=== PATIENT | male | born 1990 | race Caucasian/White ===

== ENCOUNTER 2020-03-11 12:55 | Emergency (ER) | payer MEDICAID ==
[~2020-03-11] VITALS: Ht 180.3 cm; Wt 107.3 kg
[2020-03-11 14:42] VITALS: BP 152/115
[2020-03-11] MEDS ORDERED: LIDOcaine 5% patch TP STA (15:17)
[2020-03-11] MEDS ORDERED: cyclobenzaprine 10mg tablet PO ONE (15:20)
[2020-03-11] MEDS ORDERED: ketorolac tromethamine 15mg/ml inj. IM ONE (15:20)
[2020-03-11] MEDS ORDERED: LIDO700A32 TOP (15:41)
[2020-03-11] MEDS ORDERED: CYCL-1 PO (15:41)
== END 2020-03-11 16:02 | disposition home or self-care (01) ==
LOC: ER 12:56
DX: S39.012A Strain of muscle, fascia and tendon of lower back, initial encounter (principal); G89.29 Other chronic pain; Z91.013 Allergy to seafood; Z91.048 Other nonmedicinal substance allergy status; Z79.899 Other long term (current) drug therapy; W18.39XA Other fall on same level, initial encounter; Y93.89 Activity, other specified; Y92.89 Other specified places as the place of occurrence of the external cause; Y99.8 Other external cause status
CPT/HCPCS: 96372; 99283; J1885

== ENCOUNTER 2022-11-02 00:08 | Emergency (ER) | payer MEDICAID ==
[~2022-11-02] VITALS: Ht 180.3 cm; Wt 98.0 kg
[~2022-11-02 00:08] MED LIST: CYCL-1 PO; LIDO700A32 TOP
[2022-11-02 00:10] VITALS: BP 153/99
[2022-11-02] MEDS ORDERED: AMOX-117 PO (00:39)
[2022-11-02] MEDS ORDERED: HYDR-3965 PO (00:39)
[2022-11-02] MEDS ORDERED: HYDROcodone/acetaminophen 10/325mg tab PO ONE (00:40)
== END 2022-11-02 01:39 | disposition home or self-care (01) ==
LOC: ER 00:09
DX: K08.89 Other specified disorders of teeth and supporting structures (principal); G89.29 Other chronic pain; F17.200 Nicotine dependence, unspecified, uncomplicated; Z86.19 Personal history of other infectious and parasitic diseases; Z79.899 Other long term (current) drug therapy; Z88.6 Allergy status to analgesic agent; Z91.013 Allergy to seafood
CPT/HCPCS: 99283

== ENCOUNTER 2022-11-06 16:14 | Emergency (ER) | payer MEDICAID ==
[~2022-11-06] VITALS: Ht 177.8 cm; Wt 111.4 kg
[~2022-11-06 16:14] MED LIST changes: +AMOX-117 PO; +HYDR-3965 PO
[2022-11-06 17:07] LABS: BASOPHILS # (AUTO) 0.1 X10'3 (0-0.2); EOSINOPHILS # (AUTO) 0.2 X10'3 (0-0.9); MEAN PLATELET VOLUME 9.8 FL (7.4-10.4)
[2022-11-06 17:08] LABS: BASOPHILS % (AUTO) 1.1 % (0-1); EOSINOPHILS % (AUTO) 2.6 % (0-6); HEMATOCRIT 49.3 % (42.0-52.0); HEMOGLOBIN 16.5 g/dl (14.0-17.9); LYMPHOCYTES # (AUTO) 2.7 X10'3 (1.1-4.8); LYMPHOCYTES % (AUTO) 36.8 % (21-51); MEAN CORPUSCULAR HGB CONC 33.5 g/dL (33.0-36.5); MEAN CORPUSCULAR VOLUME 89.6 FL (78-98); MONOCYTES # (AUTO) 0.6 X10'3 (0-0.9); MONOCYTES % (AUTO) 8.6 % (2-12); NEUTROPHILS # (AUTO) 3.8 X10'3 (1.8-7.7); NEUTROPHILS % (AUTO) 50.9 % (42-75); RED CELL DISTRIBUTION WIDTH 13.8 % (11.5-14.5); WHITE BLOOD COUNT 7.4 X10'3 (4.5-11.0)
[2022-11-06 17:16] LABS: PLATELET COUNT 158 X10'3 (140-440)
[2022-11-06 17:17] LABS: ALANINE AMINOTRANSFERASE 353 U/L (12-78); ALBUMIN 4.1 G/DL (3.4-5.0); ALBUMIN/GLOBULIN RATIO 1.2 (1.1-1.5); ALKALINE PHOSPHATASE 113 IU/L (46-116); ANION GAP 4 (8-16); ASPARTATE AMINO TRANSFERASE 165 U/L (10-37); BILIRUBIN,TOTAL 0.5 MG/DL (0.1-1.0); BLOOD UREA NITROGEN 6 MG/DL (7-18); BUN/CREATININE RATIO 6.1 (10.0-20.0); CALCIUM 9.5 MG/DL (8.5-10.1); CHLORIDE 105 MMOL/L (99-107); CREATININE 0.99 MG/DL (0.60-1.10); GLUCOSE 96 MG/DL (70-104); LIPASE 51 U/L (73-393); POTASSIUM 4.3 MMOL/L (3.5-5.1); SODIUM 140 MMOL/L (135-145); TOTAL PROTEIN 7.6 G/DL (6.4-8.2); eGFR 87 ML/MIN
[2022-11-06 17:19] LABS: CLARITY,URINE CLEAR (Clear); COLOR,URINE YELLOW (Yellow); GLUCOSE, URINE NEGATIVE (Neg); KETONES,URINE NEGATIVE (Neg); LEUKOCYTE ESTERASE ,URINE NEGATIVE (Neg); NITRITES, URINE NEGATIVE (Neg); OCCULT BLOOD,URINE NEGATIVE (Neg); PH,URINE 5.5 (4.8-8.0); PROTEIN,URINE NEGATIVE (Neg); UROBILINOGEN,URINE 0.2 E.U/dL (0.2-1.0)
[2022-11-06] MEDS ORDERED: normal saline 1000ML IV soln IVB ONE (17:25)
[2022-11-06] MEDS ORDERED: morphine 4 MG/ML inj SYRINge IV ONE ×2 (17:25→21:05)
[2022-11-06] MEDS ORDERED: ondansetron/PF 4mg/2ml inj IV ONE (17:25)
[2022-11-06 17:26] LABS: UA COLLECTION TYPE CLN CATCH MIDSTREAM
[2022-11-06] MEDS ORDERED: DIPH28.33 TOP (22:17)
[2022-11-06] MEDS ORDERED: CEPH-585 PO (22:17)
[2022-11-06 22:21] VITALS: BP 120/78
[2022-11-06] MEDS ORDERED: CYCL-1 PO (22:33)
[2022-11-06] MEDS ORDERED: HYDR-3965 PO (22:33)
== END 2022-11-06 22:31 | disposition home or self-care (01) ==
LOC: ER 16:15
DX: R10.11 Right upper quadrant pain (principal); Z91.041 Radiographic dye allergy status; Z91.013 Allergy to seafood
CPT/HCPCS: 36415; 74176; 76700; 76770; 80053; 81003; 83690; 85025; 96361; 96374; 96375; 96376; 99285; J2270; J2405; J7030

== ENCOUNTER 2022-11-22 20:43 | Emergency (ER) | payer MEDICAID, OTHER ==
[~2022-11-22] VITALS: Ht 182.9 cm; Wt 109.0 kg
[~2022-11-22 20:43] MED LIST changes: -AMOX-117 PO; +DIPH28.33 TOP
[2022-11-22 20:59] VITALS: BP 148/85
[2022-11-22] MEDS ORDERED: morphine 4 MG/ML inj SYRINge IM ONE (22:55)
[2022-11-22] MEDS ORDERED: ondansetron 4mg rapidly disintigrating tab PO ONE (22:55)
[2022-11-22] MEDS ORDERED: ketorolac trometh. 30mg/ml inj. IM ONE (22:55)
[2022-11-22] MEDS ORDERED: HYDR-3965 PO (23:03)
[2022-11-22] MEDS ORDERED: ONDA4TAB12 PO (23:03)
== END 2022-11-22 23:13 | disposition home or self-care (01) ==
LOC: ER 20:44
DX: M25.561 Pain in right knee (principal); Z91.041 Radiographic dye allergy status; Z91.013 Allergy to seafood
CPT/HCPCS: 29505; 73564; 96372; 99284; J1885; J2270

== ENCOUNTER 2022-11-24 19:53 | Emergency (ER) | payer OTHER ==
[~2022-11-24] VITALS: Ht 182.9 cm; Wt 109.1 kg
[~2022-11-24 19:53] MED LIST changes: +ONDA4TAB12 PO
[2022-11-24] MEDS ORDERED: morphine 4 MG/ML inj SYRINge IM ONE (21:40)
[2022-11-24] MEDS ORDERED: ondansetron 4mg rapidly disintigrating tab PO ONE (21:40)
[2022-11-24] MEDS ORDERED: ketorolac trometh. 30mg/ml inj. IM ONE (21:40)
[2022-11-24] MEDS ORDERED: OXYC-149 PO (22:10)
[2022-11-24 22:52] VITALS: BP 125/87
== END 2022-11-24 22:54 | disposition home or self-care (01) ==
LOC: ER 19:54
DX: M25.561 Pain in right knee (principal); Z91.041 Radiographic dye allergy status; Z91.013 Allergy to seafood
CPT/HCPCS: 96372; 99284; J1885; J2270

== ENCOUNTER 2023-10-03 16:59 | Emergency (ER) | payer MEDICAID, OTHER ==
[~2023-10-03] VITALS: Ht 180.3 cm; Wt 106.8 kg
[~2023-10-03 16:59] MED LIST changes: -HYDR-3965 PO; +OXYC-149 PO
[2023-10-03 17:00] VITALS: BP 123/82; PULSE 66; RESP 16; TEMP 98.5; O2SAT 96
[2023-10-04] MEDS ORDERED: IBUP-1984 PO (23:37)
[2023-10-04] MEDS ORDERED: OXYC-145 PO (23:37)
== END 2023-10-03 18:02 ==
LOC: ER 17:00
DX: M25.531 Pain in right wrist (principal); Z91.041 Radiographic dye allergy status; Z91.013 Allergy to seafood; Z79.899 Other long term (current) drug therapy; V89.2XXA Person injured in unspecified motor-vehicle accident, traffic, initial encounter; Y93.89 Activity, other specified; Y92.89 Other specified places as the place of occurrence of the external cause; Y99.8 Other external cause status
CPT/HCPCS: 73110; 99283

== ENCOUNTER 2023-10-04 23:00 | Emergency (ER) | payer MEDICAID ==
[~2023-10-04] VITALS: Ht 180.3 cm; Wt 108.6 kg
[2023-10-04] MEDS ORDERED: IBUP-1984 PO (23:37)
[2023-10-04] MEDS ORDERED: OXYC-145 PO (23:37)
[2023-10-04] MEDS: oxyCODONE/APAP 5-325mg tablet PO ONE (23:38)
[2023-10-05 00:57] VITALS: BP 125/82; PULSE 89; RESP 16; TEMP 98.2; O2SAT 96
== END 2023-10-05 00:59 | disposition home or self-care (01) ==
LOC: ER 23:01
DX: S66.911A Strain of unspecified muscle, fascia and tendon at wrist and hand level, right hand, initial encounter (principal); G89.29 Other chronic pain; M54.9 Dorsalgia, unspecified; Z91.041 Radiographic dye allergy status; Z91.013 Allergy to seafood; Z79.2 Long term (current) use of antibiotics; Z79.899 Other long term (current) drug therapy; V89.2XXA Person injured in unspecified motor-vehicle accident, traffic, initial encounter; Y93.89 Activity, other specified; Y92.89 Other specified places as the place of occurrence of the external cause; Y99.8 Other external cause status
CPT/HCPCS: 29125; 73090; 73110; 73130; 99284

== ENCOUNTER 2023-11-09 09:43 | Outpatient (CLI) | payer MEDICAID ==
[~2023-11-09 09:43] MED LIST changes: +OXYC-145 PO
== END 2023-11-09 23:59 | disposition home or self-care (01) ==
LOC: RAD 09:43
DX: M51.16 Intervertebral disc disorders with radiculopathy, lumbar region (principal)
CPT/HCPCS: 72100

== ENCOUNTER → 2023-11-13 | Outpatient (CLI) | payer MEDICAID | END | disposition home or self-care (01) | LOC: RAD 09:17 | PROVIDERS: ATTEND Nurse Practitioner Primary Care | DX: K74.60 Unspecified cirrhosis of liver (principal); B18.2 Chronic viral hepatitis C | CPT/HCPCS: 76700 ==

== ENCOUNTER 2023-12-07 13:39 | Outpatient (CLI) | payer MEDICAID ==
[~2023-12-07 13:39] MED LIST changes: +ONDA-243 PO; -ONDA4TAB12 PO
== END 2023-12-07 23:59 | disposition home or self-care (01) ==
LOC: MRI 13:39
PROVIDERS: ATTEND Nurse Practitioner Primary Care
DX: M51.16 Intervertebral disc disorders with radiculopathy, lumbar region (principal)
CPT/HCPCS: 72148